=== PATIENT | female | born 1945 | race Caucasian/White ===

== ENCOUNTER 2017-10-18 16:57 | Emergency (ER) | payer MEDICARE ==
[2017-10-18 19:12] VITALS: BP 113/80
--- NOTE | 2017-10-18 20:02 | ED ---
Throat Pain/Nasal Congestion - HPI Summary HPI Summary: 72 yr old female with runny nose, sore throat. Onset three days ago. No drooling, no stridor. No fever or chills. - History of Current Complaint Chief Complaint: UCGeneralIllness Time Seen by Provider: 10/18/17 19:50 - Allergies/Home Medications Allergies/Adverse Reactions: Allergies Allergy/AdvReac Type Severity Reaction Status Date / Time lamotrigine Allergy Severe Swelling Verified 10/18/17 19:01 Of Face,Lips,& Throat butalbital [From Fioricet] Allergy Unknown Verified 10/18/17 19:01 Reaction Details diltiazem [From Cardizem] Allergy Hives Verified 10/18/17 19:01 erythromycin base Allergy Unknown Verified 10/18/17 19:01 Reaction Details estradiol [From Estrace] Allergy Hives Verified 10/18/17 19:01 Iodinated Contrast- Oral and Allergy Unknown Verified 10/18/17 19:01 IV Dye Reaction Details levofloxacin [From Levaquin] Allergy Leg Cramps Verified 10/18/17 19:01 meloxicam [From Mobic] Allergy Hives Verified 10/18/17 19:01 mexiletine Allergy Tachycardia Verified 10/18/17 19:01 midodrine Allergy Hives Verified 10/18/17 19:01 nebivolol [From Bystolic] Allergy Unknown Verified 10/18/17 19:01 Reaction Details nifedipine [From Procardia] Allergy Hives Verified 10/18/17 19:01 rofecoxib [From Vioxx] Allergy Unknown Verified 10/18/17 19:01 Reaction Details Sulfa (Sulfonamide Allergy Hives Verified 10/18/17 19:01 Antibiotics) sulfasalazine Allergy Hives Verified 10/18/17 19:01 tetanus toxoid, adsorbed Allergy Fever Verified 10/18/17 19:01 tetracycline Allergy Hives Verified 10/18/17 19:01 tobramycin Allergy Hives Verified 10/18/17 19:01 Home Medications: Home Medications Aspirin [Aspir-Low] 81 mg PO DAILY 10/18/17 [History Confirmed 10/18/17] PMH/Surg Hx/FS Hx/Imm Hx Endocrine/Hematology History: Reports: Hx Thyroid Disease Cardiovascular History: Reports: Hx Auto Implanted Cardiovert Defib, Hx Hypercholesterolemia, Hx Hypertension, Hx Pacemaker/ICD, Other Cardiovascular Problems/Disorders - chronic v fib not controlled Respiratory History: Reports: Hx Seasonal Allergies GI History: Reports: Hx Gastroesophageal Reflux Disease, Hx Hiatal Hernia, Hx Irritable Bowel Musculoskeletal History: Reports: Hx Arthritis, Hx Osteoporosis, Other Musculoskeletal History - chronic pain left neck and shoulder Sensory History: Reports: Hx Contacts or Glasses Opthamlomology History: Reports: Hx Contacts or Glasses - Cancer History Hx Chemotherapy: No Hx Radiation Therapy: No - Surgical History Surgery Procedure, Year, and Place: HYSTERCTOMY-1975. tonsilectomy. bunny. hernia. partial thyroidectomy. R knee surgery. pacemaker. APPY. BUNIONECTOMY B/L. L Knee arthroscopic sx. cystectomy--between right breast and right axilla. Infectious Disease History: Yes Infectious Disease History: Reports: Hx Shingles Denies: Traveled Outside the [place] in Last 30 Days - Family History Known Family History: Positive: Hypertension - Social History Alcohol Use: Rare Substance Use Type: Reports: None Smoking Status (MU): Never Smoked Tobacco Type: Cigarettes Have You Smoked in the Last Year: No Review of Systems Constitutional: Negative Positive: Sore Throat, Nasal Discharge All Other Systems Reviewed And Are Negative: Yes Physical Exam Triage Information Reviewed: Yes Vital Signs On Initial Exam: Initial Vitals Temp Pulse Resp BP Pulse Ox 98.5 F 86 16 113/80 99 10/18/17 19:05 10/18/17 19:05 10/18/17 19:05 10/18/17 19:05 10/18/17 19:05 Vital Signs Reviewed: Yes Appearance: Positive: Well-Appearing, No Pain Distress Skin: Positive: Warm, Skin Color Reflects Adequate Perfusion Head/Face: Positive: Normal Head/Face Inspection Eyes: Positive: EOMI ENT: Positive: Pharyngeal erythema, TMs normal Neck: Positive: Nontender Respiratory/Lung Sounds: Positive: Clear to Auscultation, Breath Sounds Present Cardiovascular: Positive: RRR. Negative: Murmur Abdomen Description: Positive: Nontender Musculoskeletal: Positive: Strength/ROM Intact Neurological: Positive: Sensory/Motor Intact, Alert, Oriented to Person Place, Time, CN Intact II-III, Speech Normal Psychiatric: Positive: Normal - Bala Coma Scale Best Eye Response: 4 - Spontaneous Best Motor Response: 6 - Obeys Commands Best Verbal Response: 5 - Oriented Coma Scale Total: 15 Diagnostics - Vital Signs Vital Signs Temp Pulse Resp BP Pulse Ox 10/18/17 19:05 98.5 F 86 16 113/80 99 - Laboratory Lab Results: Lab Results 10/18/17 Range/Units 19:13 Group A Strep Rapid Negative (Negative) Lab Statement: Any lab studies that have been ordered have been reviewed, and results considered in the medical decision making process. EENT Course/Dx - Course Course Of Treatment: 72 yr old with URI. DC home stable condition. - Diagnoses Provider Diagnoses: Upper respiratory infection Discharge - Sign-Out/Discharge Documenting (check all that apply): Discharge/Admit/Transfer - Discharge Plan Condition: Good Disposition: HOME Patient Education Materials: Upper Respiratory Infection (ED) Referrals: Manuel Kelley MD [Primary Care Provider] - 2 Days - Billing Disposition and Condition Condition: GOOD Disposition: Home
== END 2017-10-18 20:02 | disposition home or self-care (01) ==
LOC: UCCORT 16:57
DX: J06.9 Acute upper respiratory infection, unspecified (principal); Z88.8 Allergy status to other drugs, medicaments and biological substances; Z88.6 Allergy status to analgesic agent; Z88.1 Allergy status to other antibiotic agents; Z91.041 Radiographic dye allergy status; Z88.2 Allergy status to sulfonamides; Z88.7 Allergy status to serum and vaccine; Z95.811 Presence of heart assist device
CPT/HCPCS: 87651; 99212; G0463

== ENCOUNTER 2018-10-14 08:26 | Emergency (ER) | payer MEDICARE ==
[2018-10-14 08:46] VITALS: BP 114/60
--- NOTE | 2018-10-14 09:19 | UC ---
Skin Complaint HPI - HPI Summary HPI Summary: 73-year-old woman comes in with a chief complaint of an insect bite to her left upper arm. 2 nights ago when she was outside she felt something bite her on the left posterior arm and when she touches that she rubbed something off she's not sure what it was she thinks it was an insect. Later when she looked it was a blood blister. It is not itchy there is a ring of ecchymosis around the area. No fevers or chills feels well otherwise. - History of Current Complaint Chief Complaint: UCSkin Time Seen by Provider: 10/14/18 09:09 Stated Complaint: LEFT ARM TICK BITE Pain Intensity: 0 - Allergy/Home Medications Allergies/Adverse Reactions: Allergies Allergy/AdvReac Type Severity Reaction Status Date / Time lamotrigine Allergy Severe Swelling Verified 08/10/18 15:35 Of Face,Lips,& Throat butalbital [From Fioricet] Allergy Unknown Verified 08/10/18 15:35 Reaction Details diltiazem [From Cardizem] Allergy Hives Verified 08/10/18 15:35 erythromycin base Allergy Unknown Verified 08/10/18 15:35 Reaction Details estradiol [From Estrace] Allergy Hives Verified 08/10/18 15:35 Iodinated Contrast- Oral and Allergy Unknown Verified 08/10/18 15:35 IV Dye Reaction Details levofloxacin [From Levaquin] Allergy Leg Cramps Verified 08/10/18 15:35 meloxicam [From Mobic] Allergy Hives Verified 08/10/18 15:35 mexiletine Allergy Tachycardia Verified 08/10/18 15:35 midodrine Allergy Hives Verified 08/10/18 15:35 nebivolol [From Bystolic] Allergy Unknown Verified 08/10/18 15:35 Reaction Details nifedipine [From Procardia] Allergy Hives Verified 08/10/18 15:35 Penicillins Allergy Unknown Verified 10/14/18 08:47 Reaction Details rofecoxib [From Vioxx] Allergy Unknown Verified 08/10/18 15:35 Reaction Details Sulfa (Sulfonamide Allergy Hives Verified 08/10/18 15:35 Antibiotics) sulfasalazine Allergy Hives Verified 08/10/18 15:35 tetanus toxoid, adsorbed Allergy Fever Verified 08/10/18 15:35 tetracycline Allergy Hives Verified 08/10/18 15:35 tobramycin Allergy Hives Verified 08/10/18 15:35 Home Medications: Home Medications Ergocalciferol (Vitamin D2) [Vitamin D2] 50,000 unit PO WEEKLY 10/14/18 [ History Confirmed 10/14/18] PMH/Surg Hx/FS Hx/Imm Hx Previously Healthy: Yes Endocrine History: Hypothyroidism Cardiovascular History: Hypertension GI/ History: Gastroesophageal Reflux - Surgical History Surgical History: Yes Surgery Procedure, Year, and Place: HYSTERCTOMY-1975. tonsilectomy. bunny. hernia. partial thyroidectomy. R knee surgery. pacemaker. APPY. BUNIONECTOMY B/L. L Knee arthroscopic sx. cystectomy--between right breast and right axilla. - Family History Known Family History: Positive: Hypertension - Social History Alcohol Use: Rare Alcohol Amount: 1-2 DRINKS Substance Use Type: None Smoking Status (MU): Never Smoked Tobacco Type: Cigarettes Have You Smoked in the Last Year: No - Immunization History Most Recent Influenza Vaccination: 01/10/15 Review of Systems All Other Systems Reviewed And Are Negative: Yes Constitutional: Positive: Negative Skin: Positive: Other - SEE HPI Eyes: Positive: Negative ENT: Positive: Negative Respiratory: Positive: Negative Cardiovascular: Positive: Negative Gastrointestinal: Positive: Negative Motor: Positive: Negative Neurovascular: Positive: Negative Musculoskeletal: Positive: Negative Neurological: Positive: Negative Psychological: Positive: Negative Is Patient Immunocompromised?: No Physical Exam Triage Information Reviewed: Yes Appearance: Well-Appearing, No Pain Distress, Well-Nourished Vital Signs: Initial Vital Signs Temp 98.5 F 10/14/18 08:40 Pulse 77 10/14/18 08:40 Resp 18 10/14/18 08:40 BP 114/60 10/14/18 08:40 Pulse Ox 100 10/14/18 08:40 Vital Signs Reviewed: Yes Eye Exam: Normal Eyes: Positive: Conjunctiva Clear Neck: Positive: Supple Respiratory: Positive: No respiratory distress Musculoskeletal: Positive: Strength Intact, ROM Intact Neurological: Positive: Alert, Muscle Tone Normal Psychological: Positive: Age Appropriate Behavior Skin: Positive: Other - Left posterior upper arm just medial to the elbow there is a punctate lesion which appears to be an insect bite with 2 cm surrounding ecchymosis. This does not have a typical appearance of a bull's-eye rash. Course/Dx - Course Course Of Treatment: The injury appears to be a localized reaction to an insect bite. It does not appear to be erythema migrans. There is no streaking or signs of infection. We discussed different options such as wheezing and watching and seeing if anything got worse or if she felt ill before starting antibiotic treatment. At this time the plan is to have a prescription for doxycycline available so that if she does start to get worse she can start the doxycycline. She is any reevaluated if she does get worse. - Diagnoses Provider Diagnosis: Insect bite of left upper arm Discharge - Sign-Out/Discharge Documenting (check all that apply): Patient Departure All imaging exams completed and their final reports reviewed: No Studies - Discharge Plan Condition: Stable Disposition: HOME Prescriptions: DOXYcycline CAP(*) [DOXYcycline 100MG CAP(*)] 100 mg PO BID #28 cap Patient Education Materials: Insect Bite or Sting (ED) Referrals: Manuel Kelley MD [Primary Care Provider] - Additional Instructions: FOLLOW UP WITH YOUR DOCTOR IF NOT COMPLETELY IMPROVED. GET REEVALUATED SOONER IF WORSE; INFECTION, YOU FEEL ILL, SYMPTOMS OF LYME DISEASE OR ANY QUESTIONS OR CONCERNS. - Billing Disposition and Condition Condition: STABLE Disposition: Home
== END 2018-10-14 09:27 | disposition home or self-care (01) ==
LOC: UCCORT 08:26
DX: S40.862A Insect bite (nonvenomous) of left upper arm, initial encounter (principal); W57.XXXA Bitten or stung by nonvenomous insect and other nonvenomous arthropods, initial encounter; Y92.9 Unspecified place or not applicable; Z88.0 Allergy status to penicillin; Z88.2 Allergy status to sulfonamides; Z88.1 Allergy status to other antibiotic agents; I10 Essential (primary) hypertension
CPT/HCPCS: 99212; G0463

== ENCOUNTER 2018-11-02 09:38 | Emergency (ER) | payer MEDICARE ==
[2018-11-02 11:01] VITALS: BP 126/48
--- NOTE | 2018-11-02 11:16 | UC ---
Respiratory Complaint HPI - HPI Summary HPI Summary: Pt presents with c/o worsening cough, nasal congestion, PND and malaise X 5 days. - History of Current Complaint Chief Complaint: UCGeneralIllness Stated Complaint: COUGH CONGESTION Time Seen by Provider: 11/02/18 11:07 Hx Obtained From: Patient ?: No Onset/Duration: Gradual Onset, Lasting Days, Still Present, Worse Since - onset Timing: Constant Severity Initially: Mild Severity Currently: Moderate Pain Intensity: 6 Character: Cough: Productive, Sputum Description: - white Aggravating Factors: Exertion, Deep Breaths, Recumbent Position Alleviating Factors: Nothing Associated Signs And Symptoms: Positive: Chills, URI, Nasal Congestion, Sinus Discomfort - Risk Factors Pulmonary Embolism Risk Factors: Negative Cardiac Risk Factors: CAD Pseudomonas Risk Factors: Negative Tuberculosis Risk Factors: Negative - Has lupus - Allergies/Home Medications Allergies/Adverse Reactions: Allergies Allergy/AdvReac Type Severity Reaction Status Date / Time lamotrigine Allergy Severe Swelling Verified 11/02/18 10:59 Of Face,Lips,& Throat butalbital [From Fioricet] Allergy Unknown Verified 11/02/18 10:59 Reaction Details diltiazem [From Cardizem] Allergy Hives Verified 11/02/18 10:59 erythromycin base Allergy Unknown Verified 11/02/18 10:59 Reaction Details estradiol [From Estrace] Allergy Hives Verified 11/02/18 10:59 Iodinated Contrast- Oral and Allergy Unknown Verified 11/02/18 10:59 IV Dye Reaction Details levofloxacin [From Levaquin] Allergy Leg Cramps Verified 11/02/18 10:59 meloxicam [From Mobic] Allergy Hives Verified 11/02/18 10:59 mexiletine Allergy Tachycardia Verified 11/02/18 10:59 midodrine Allergy Hives Verified 11/02/18 10:59 nebivolol [From Bystolic] Allergy Unknown Verified 11/02/18 10:59 Reaction Details nifedipine [From Procardia] Allergy Hives Verified 11/02/18 10:59 Penicillins Allergy Unknown Verified 11/02/18 10:59 Reaction Details rofecoxib [From Vioxx] Allergy Unknown Verified 11/02/18 10:59 Reaction Details Sulfa (Sulfonamide Allergy Hives Verified 11/02/18 10:59 Antibiotics) sulfasalazine Allergy Hives Verified 11/02/18 10:59 tetanus toxoid, adsorbed Allergy Fever Verified 11/02/18 10:59 tetracycline Allergy Hives Verified 11/02/18 10:59 tobramycin Allergy Hives Verified 11/02/18 10:59 Home Medications: Home Medications Acetaminophen [Tylenol Extra Strength] 500 mg PO ONCE PRN 11/02/18 [History Confirmed 11/02/18] PMH/Surg Hx/FS Hx/Imm Hx - Additional Past Medical History Additional PMH: Has lupus Previously Healthy: Yes Cardiovascular History: Cardiac Disease, Atrial Fibrillation - Surgical History Surgical History: Yes Surgery Procedure, Year, and Place: HYSTERCTOMY-1975. tonsilectomy. bunny. hernia. partial thyroidectomy. R knee surgery. pacemaker. APPY. BUNIONECTOMY B/L. L Knee arthroscopic sx. cystectomy--between right breast and right axilla. - Family History Known Family History: Positive: Hypertension - Social History Occupation: Retired Lives: With Family Alcohol Use: Rare Alcohol Amount: 1-2 DRINKS Substance Use Type: None Smoking Status (MU): Never Smoked Tobacco Type: Cigarettes Have You Smoked in the Last Year: No - Immunization History Most Recent Influenza Vaccination: 01/10/15 Review of Systems All Other Systems Reviewed And Are Negative: Yes Constitutional: Positive: Chills, Fatigue Skin: Positive: Negative Eyes: Positive: Negative ENT: Positive: Sore Throat, Sinus Congestion, Sinus Pain/Tenderness, Other - PND Respiratory: Positive: Shortness Of Breath - with exertion, Cough Cardiovascular: Positive: Negative Gastrointestinal: Positive: Negative Genitourinary: Positive: Negative Motor: Positive: Negative Neurovascular: Positive: Negative Musculoskeletal: Positive: Myalgia Neurological: Positive: Negative Psychological: Positive: Negative Is Patient Immunocompromised?: No Physical Exam Triage Information Reviewed: Yes Appearance: Well-Appearing Vital Signs: Initial Vital Signs Temp 98.1 F 11/02/18 10:56 Pulse 81 11/02/18 10:56 Resp 16 11/02/18 10:56 BP 126/48 11/02/18 10:56 Pulse Ox 97 11/02/18 10:56 Vital Signs Reviewed: Yes Eye Exam: Normal ENT: Positive: Nasal congestion, Sinus tenderness Dental Exam: Normal Neck exam: Normal Respiratory: Positive: Normal breath sounds Cardiovascular Exam: Normal Musculoskeletal Exam: Normal Neurological Exam: Normal Psychological Exam: Normal Skin Exam: Normal Respiratory Course/Dx - Differential Dx/Diagnosis Differential Diagnosis/HQI/PQRI: Bronchitis, Exacerbation Of COPD, Sinusitis Provider Diagnosis: Sinusitis, Cough Discharge - Sign-Out/Discharge Documenting (check all that apply): Patient Departure All imaging exams completed and their final reports reviewed: No Studies - Discharge Plan Condition: Stable Disposition: HOME Prescriptions: Benzonatate CAP* [Tessalon 100 MG CAP*] 100 mg PO Q8H #30 cap DOXYcycline CAP(*) [DOXYcycline 100MG CAP(*)] 100 mg PO Q12H #20 cap Patient Education Materials: Sinusitis (ED), Acute Cough (ED) Referrals: [facility] [place] PHYSICIAN REFERRAL [Outside] No Primary Care Phys,NOPCP [Primary Care Provider] - Additional Instructions: Please follow up with your PCP as needed. If your symptoms worsen please seek care at the closest emergency room. - Billing Disposition and Condition Condition: STABLE Disposition: Home - Attestation Statements Provider Attestation: Pt not seen by me. I was available for consult. ISAIAH
== END 2018-11-02 11:26 | disposition home or self-care (01) ==
LOC: UCCORT 09:38
DX: R05 Cough (principal); J32.9 Chronic sinusitis, unspecified; I48.91 Unspecified atrial fibrillation; I25.10 Atherosclerotic heart disease of native coronary artery without angina pectoris; Z95.0 Presence of cardiac pacemaker; Z88.0 Allergy status to penicillin; Z88.2 Allergy status to sulfonamides
CPT/HCPCS: 99212; G0463